=== PATIENT | female | born 1985 | race Caucasian/White ===

== ENCOUNTER 2020-06-29 16:27 | Outpatient (REF) | payer OTHER, SELFPAY | END 2020-06-29 16:28 | disposition home or self-care (01) | LOC: HO.LAB 16:27 | PROVIDERS: Visit Provider Internal Medicine | DX: Z20.828 Contact with and (suspected) exposure to other viral communicable diseases (principal) | CPT/HCPCS: 36415; C9803; U0003 ==

== ENCOUNTER 2021-07-28 12:02 | Emergency (ER) | payer OTHER, SELFPAY ==
[2021-07-28 12:20] VITALS: BP 110/77; PULSE 93; RESP 18; O2SAT 98; BMI 32.8
--- NOTE | 2021-07-28 13:13 | ED_ITS ---
HPI - Back Pain/Injury General Chief Complaint: Back Pain/Injury Stated Complaint: back pain Time Seen by Provider: 07/28/21 13:13 History of Present Illness HPI Narrative: Patient complains of right-sided low back pain which intermittently radiates to the right gluteal and upper thigh area for 2-3 weeks, it may be from having exercised in the gym but she is not sure, she also complains of bladder pressure with urination for several days, no fever no chills no pain with urination no vomiting no abdomen or back pain Related Data Previous Rx's Medication Instructions Recorded acetaminophen 500 mg tablet 1,000 mg PO QID PRN #30 tab 07/28/21 cyclobenzaprine 5 mg tablet 5 mg PO TID PRN #14 tab 07/28/21 ibuprofen 600 mg tablet 600 mg PO Q6H PRN #20 tab 07/28/21 lidocaine 5 % topical patch 1 patch TOPICAL DAILY PRN #15 ea 07/28/21 prednisone 20 mg tablet 60 mg PO DAILY 4 Days #12 tab 07/28/21 Allergies Allergy/AdvReac Type Severity Reaction Status Date / Time No Known Allergies Allergy Unverified 03/10/20 19:28 [No Known Allergies*] Review of Systems Verdana 4l Review of Systems: Verdana 4d Verdana 4d Positive for back pain and a feeling of pressure when she urinates Negatives are no fever no chills no dizziness no weakness no fainting no feeling faint no headache no neck pain no chest pain or shortness of breath no abdominal pain no nauseanausea vomiting or diarrhea no burning with urination no frequency of urination no incontinence no changes to bowel or bladder no numbness or weakness Yes all other systems are reviewed and are negative PMFSH Past Medical History Source: nursing notes reviewed Medical History (Updated 07/28/21 @ 14:03 by MAIK Oliva) No known health problems Surgical History (Updated 07/28/21 @ 12:24 by Mary Cesar) History of ankle surgery Tubal ligation status Social History Social History Advance Directives: No Advance Directives Information Provided: No Patient : No Physical Exam Verdana 4l Vital Signs: Verdana 4d Verdana 4d Vital Signs: Verdana 4d Verdana 4Bd Last Vital Signs Verdana 4d Director [employer] New 4d Director [employer] [facility] Pulse 93 07/28/21 12:20 Director [employer] [facility] [employer] [facility] Resp 18 07/28/21 12:[address] BP 110/77 07/28/21 12:20 Pulse Ox 98 07/28/21 12:20 BMI result Body Mass Index 32.8 General appearance is comfortable appearing no acute distress Head is normocephalic atraumatic Neck is supple Respiratory no distress Abdomen is soft and nontender no rebound no guarding The back had right lower lumbar soft tissue tenderness, no CVA tenderness, no midline or bony tenderness, skin was normal, pain is easily reproduced in the right lower back with bending and movement Extremities full range of motion x4 Neuro gait and balance are normal, motor is 5/5 x4 and sensation is intact and symmetrical Course Course Course Narrative: UA was checked and negative as well as was negative Patient symptoms of a mild feeling of pressure when urinating but no frequency no real pain with urination no change in color no antibiotics were provided For musculoskeletal back pain the patient is treated with analgesic steroids and a muscle relaxer and will follow with her doctor MDM - Back Pain/Injury Lab Data Attestation: I reviewed the patient's lab results. Labs: Lab Results 07/28/21 07/28/21 Range/Units 13:15 13:15 Urine Color YELLOW Urine Appearance CLEAR Urine pH 7.0 (5.0-8.0) Ur Specific Williams 1.020 (1.005-1.025) Urine Protein NEG (NEG-TRACE) MG/DL Urine Glucose (UA) NEG (NEG) MG/DL Urine Ketones NEG (NEG) MG/DL Urine Blood NEG (NEG) Urine Nitrite NEG (NEG) Ur Leukocyte Esterase NEG (NEG) Urine Test NEGATIVE (NEGATIVE) Discharge Plan Discharge Clinical Impression: Back pain Patient Disposition: Home, Self-Care Additional Instructions: Urine testing did not show any sign of urinary tract infection Back pain usually resolves on its own but if it is not going away follow with primary doctor cause physical therapy, massage chiropractor are often helpful and he can give your referrals We are trying prednisone which often resists relieves inflammation around the nerve and may be helpful Return any time any worse condition or any concerns Prescriptions: New acetaminophen 500 mg tablet 1,000 mg PO QID PRN (Reason: pain) Qty: 30 0RF lidocaine 5 % adhesive patch,medicated 1 patch topical DAILY PRN (Reason: Back pain) Qty: 15 0RF Rx Instructions: leave on most painful area for up to 12 hrs cyclobenzaprine 5 mg tablet 5 mg PO TID PRN (Reason: muscle spasm) Qty: 14 0RF Rx Instructions: This medication may cause drowsiness so no driving for 6 hours after taking ibuprofen 600 mg tablet 600 mg PO Q6H PRN (Reason: pain) Qty: 20 0RF prednisone 20 mg tablet 60 mg PO DAILY 4 Days Qty: 12 0RF Interventions: ED Discharge Assessment Last Done: 07/28/21 14:05 Discharge Date/Time: 07/28/21 14:06
[2021-07-28 13:44] LABS: Appearance Urine CLEAR; Color Urine YELLOW; Glucose Urine UA NEG (NEG); Leukocyte Esterase Urine NEG (NEG); Nitrite Urine NEG (NEG); Urine Blood NEG (NEG); Urine Ketones NEG (NEG); Urine Protein NEG (NEG-TRACE)
[2021-07-28 13:45] LABS: UPreg QC Valid YES; Urine Pregnancy NEGATIVE (NEGATIVE)
== END 2021-07-28 14:06 | disposition home or self-care (01) ==
PROVIDERS: Physician Assistant Medical; Emergency Provider Emergency Medicine
DX: M54.50 Low back pain, unspecified (principal)
CPT/HCPCS: 81003; 81025; 99283

== ENCOUNTER 2021-08-03 18:52 | Emergency (ER) | payer OTHER, SELFPAY ==
--- NOTE | ~2021-08-03 | XR_ITS ---
EXAMINATION: XR CHEST CLINICAL INFORMATION: Cervical lymphadenopathy COMPARISON: None TECHNIQUE: Frontal view of the chest was obtained. FINDINGS: Lung volumes are symmetric. No focal consolidation is seen. No evidence of pneumothorax, pleural effusion, or pulmonary edema. The cardiomediastinal contour is unremarkable. No acute osseous findings are seen. XR/XR chest 1V IMPRESSION: No acute cardiopulmonary findings.
[2021-08-03 20:07] VITALS: BP 112/71; PULSE 82; RESP 16; TEMP 36.4; O2SAT 100; BMI 32.6
--- NOTE | 2021-08-03 23:59 | ED_ITS ---
HPI - URI/Sore Throat General Chief Complaint: Upper Respiratory Symptoms Stated Complaint: ? swollen neck glands Time Seen by Provider: 08/03/21 23:43 Source: patient Mode of arrival: ambulatory Limitations: no limitations History of Present Illness HPI Narrative: 36-year-old female came in for evaluation of sore throat and the large neck lymph node. Patient has been feeling enlarged lymph node gland on the right side of the neck radiating to the right ear, complaining of sore throat,patient decline fever or chills, no difficulty swallowing or difficulty breathing. Patient tested positive for COVID 3 weeks ago. Patient otherwise decline chest pain, abdominal pain, vomiting or diarrhea. Related Data Previous Rx's Medication Instructions Recorded acetaminophen 500 mg tablet 1,000 mg PO QID PRN #30 tab 07/28/21 cyclobenzaprine 5 mg tablet 5 mg PO TID PRN #14 tab 07/28/21 ibuprofen 600 mg tablet 600 mg PO Q6H PRN #20 tab 07/28/21 lidocaine 5 % topical patch 1 patch TOPICAL DAILY PRN #15 ea 07/28/21 prednisone 20 mg tablet 60 mg PO DAILY 4 Days #12 tab 07/28/21 Allergies Allergy/AdvReac Type Severity Reaction Status Date / Time No Known Allergies Allergy Verified 08/03/21 20:07 [No Known Allergies*] Review of Systems Review of Systems: All other systems are reviewed and are negative Constitutional: Reports as per HPI and Reports no additional constitutional complaints Eyes: Reports as per HPI and Reports no additional eye complaints Reports system reviewed and no additional complaints, except as documented Cardiovascular: Reports as per HPI and Reports no additional cardiovascular co mplaints Respiratory: Reports as per HPI and Reports no additional respiratory complaints Gastrointestinal: Reports as per HPI and Reports no additional gastrointestinal complaints Genitourinary: Reports no additional female genitourinary complaints Musculoskeletal: Reports no additional musculoskeletal complaints Skin/Breast: Reports system reviewed and no additional complaints, except as docu Psychiatric: Reports no additional psychiatric complaints Endocrine: Reports no additional endocrine complaints Hematologic/Lymphatic: Reports no additional hematologic/lymphatic complaints Allergic/Immunologic: Reports no additional allergic/immunologic complaints Reports system reviewed and no additional complaints, except as documented and Reports Abnormal speech present PMFSH Past Medical History Medical History No known health problems Surgical History History of ankle surgery Tubal ligation status Social History Social History Advance Directives: No Advance Directives Information Provided: No Patient : No Physical Exam Vital Signs: Vital Signs: Last Vital Signs Temp 97.6 F 08/03/21 20:07 Pulse 82 08/03/21 20:07 Resp 16 08/03/21 20:07 BP 112/71 08/03/21 20:07 Pulse Ox 100 08/03/21 20:07 BMI result Body Mass Index 32.6 vital signs have been reviewed as appeared to be correct. Blood pressure normal. Heart rate normal. Respiration rate normal. Temperature normal. Oxygen saturation normal. Appearance: Alert. Oriented X3. No acute distress. Head: Normal external exam. Normocephalic. Atraumatic. No Harrison signs noted. No raccoon eyes noted Eyes: PERRLA. EOMI. Conjunctiva and sclera normal. Eyelids normal. ENT: TM's Normal. Pharynx normal. Uvula midline. Patent airway, no stridor. Moist mucous membranes. No trismus noted. No drooling noted. No muffled voice noted. Neck: Normal inspection. Neck supple. FROM. No adenopathy. Thyroid Normal. No meningeal signs. No neck mass noted. CVS: Normal heart rate and rhythm. Heart sound normal. No murmurs noted. Pulses normal throughout. Respiratory: No respiratory distress. Painless inspiration. Breath sounds normal. No wheezes/rales/rhonchi noted. Chest nontender. No accessory muscle usage noted or decreased air movement noted. Abdomen: Soft and nontender. Bowel sounds normal in all 4 quadrants. No distention noted. No organomegaly noted. No visible injury noted. Back: No CVA tenderness. Full range of motion noted. Skin: Skin warm and dry. Normal skin color. Normal skin turgor. No rashes/lesions/lacerations noted. Extremities: No lower extremity edema. Extremities exhibit normal range of motion. Extremities nontender. Neuro: Oriented X 3. Cranial nerve exam: II-XII are grossly intact No motor deficit. No sensory deficit. Reflexes normal. Course Course Course Narrative: 36-year-old female came in for subjective feeling of right-sided lymphadenopathy. Physical exam revealed patent airway, on palpable masses in her neck exam. Normal chest x-ray, patient had viral respiratory panel is still positive for COVID-19 infection, patient was stable vital signs. As discussed with the patient if symptoms persist to follow-up with her primary doctor to consider outpatient neck ultrasound. MDM - URI/Sore Throat Lab Data Attestation: I reviewed the patient's lab results. Labs: Lab Results 08/04/21 08/04/21 Range/Units 00:23 00:23 Influenza Type A (PCR) NEGATIVE (Negative) Influenza Type B (PCR) NEGATIVE (Negative) RSV RNA Qual (PCR) NEGATIVE (Negative) SARS-CoV-2 RNA (RT-PCR) POSITIVE A (Negative) S. pyogenes GrpA OLLIE Negative (Negative) Imaging Data Chest x-ray: Attestation: I personally reviewed and interpreted this imaging study as follows: Radiologist's impression: no acute cardiopulmonary findings. Discharge Plan Discharge Clinical Impression: Upper respiratory infection, COVID-19 virus infection Patient Disposition: Home, Self-Care Instructions: Lymphadenopathy (ED) Additional Instructions: if symptoms persist for 3-4 days, or losing unexplainable weight call your primary doctor to arrange for an outpatient neck ultrasound. Prescriptions: No Action acetaminophen 500 mg tablet 1,000 mg PO QID PRN (Reason: pain) Qty: 30 0RF lidocaine 5 % adhesive patch,medicated 1 patch topical DAILY PRN (Reason: Back pain) Qty: 15 0RF Rx Instructions: leave on most painful area for up to 12 hrs cyclobenzaprine 5 mg tablet 5 mg PO TID PRN (Reason: muscle spasm) Qty: 14 0RF Rx Instructions: This medication may cause drowsiness so no driving for 6 hours after taking ibuprofen 600 mg tablet 600 mg PO Q6H PRN (Reason: pain) Qty: 20 0RF prednisone 20 mg tablet 60 mg PO DAILY 4 Days Qty: 12 0RF Referrals: Physician,Unknown J [Primary Care Provider] - 2 days
[2021-08-04 00:39] LABS: Strep A Nucleic Acid Negative (Negative)
[2021-08-04 01:09] LABS: Influenza A PCR NEGATIVE (Negative); Influenza B PCR NEGATIVE (Negative); Resp Syncy Virus RNA Qual PCR NEGATIVE (Negative); SARS COV2 PCR INHOUSE POSITIVE (Negative)
== END 2021-08-04 01:53 | disposition home or self-care (01) ==
PROVIDERS: Emergency Provider Emergency Medicine
DX: U07.1 COVID-19 (principal); R59.9 Enlarged lymph nodes, unspecified; H92.01 Otalgia, right ear; Z79.899 Other long term (current) drug therapy
CPT/HCPCS: 0241U; 71045; 87651; 99283

== ENCOUNTER 2022-10-01 11:55 | Emergency (ER) | payer OTHER, SELFPAY ==
[2022-10-01 12:28] VITALS: BP 125/71; PULSE 80; RESP 16; TEMP 36.7; O2SAT 100; BMI 28.7
--- NOTE | 2022-10-01 12:30 | ECG_ITS ---
Test Reason : ches tightness Blood Pressure : / mmHG Vent. Rate : 072 BPM Atrial Rate : 072 BPM P-R Int : 130 ms QRS Dur : 078 ms QT Int : 370 ms P-R-T Axes : 052 026 044 degrees QTc Int : 405 ms Normal sinus rhythm Normal ECG When compared with ECG of 23-APR-2019 01:01, No significant change was found Referred By: Zaid Gibson Electronically Signed By:MINI EWING MD
--- NOTE | 2022-10-01 12:31 | ED_ITS ---
HPI - General Adult General Chief complaint: Headache <MAIK Salinas - Last Filed: 10/01/22 17:09> Stated complaint: headache 3 days <MAIK Salinas - Last Filed: 10/01/22 17:09> Time Seen by Provider: 10/01/22 15:44 <MAIK Salinas - Last Filed: 10/01/22 17:09> Source: patient <MAIK Sagastume Last Filed: 10/01/22 17:04> Mode of arrival: ambulatory <MAIK Sagastume Last Filed: 10/01/22 17:04> Limitations: no limitations <MAIK Sagastume Last Filed: 10/01/22 17:04> History of Present Illness HPI narrative: Patient is a 37 year old assigned female at with a history of migraines presenting to the emergency department today with a headache. Patient states that over the last 3 days she has had a persistent headache. Patient states that she is diagnosed with migraines but does not follow anyone or have any medications prescribed for them. Patient denies any dizziness, lightheadedness, abdominal pain, nausea, vomiting, fever, chills, blurry vision, double vision, loss of vision, chest pain, difficulty breathing, shortness of breath, back pain, night sweats, pain with urination, increased urinary frequency, increased urinary urgency, blood in her urine or stool, syncope or a near syncopal episode, recent trauma or falls, bowel incontinence, bladder incontinence, bowel retention, bladder retention, or any other complaints at this time. <MAIK Sagastume - Last Filed: 10/01/22 17:04> Onset (ago): day(s) (3) <MAIK Sagastume - Last Filed: 10/01/22 17:04> Location: head <MAIK Sagastume Last Filed: 10/01/22 17:04> Radiation: non-radiation <MAIK Sagastume Last Filed: 10/01/22 17:04> Severity: mild <MAIK Sagastume Last Filed: 10/01/22 17:04> Severity scale (1-10): 3 <MAIK Sagastume Last Filed: 10/01/22 17:04> Quality: aching and dull <MAIK Sagastume Last Filed: 10/01/22 17:04> Pain Consistency: constant <MAIK Sagastume Last Filed: 10/01/22 17:04> Relieving factors: none <MAIK Sagastume Last Filed: 10/01/22 17:04> Exacerbating factors: none <MAIK Sagastume Last Filed: 10/01/22 17:04> Associated symptoms: denies other symptoms <MAIK Sagastume - Last Filed: 10/01/22 17:04> Treatments prior to arrival: none <MAIK Sagastume Last Filed: 10/01/22 17:04> Related Data Home medications: Previous Rx's Medication Instructions Recorded acetaminophen 500 mg tablet 1,000 mg PO QID PRN pain #30 tabs 07/28/21 cyclobenzaprine 5 mg tablet 5 mg PO TID PRN muscle spasm #14 07/28/21 tabs ibuprofen 600 mg tablet 600 mg PO Q6H PRN pain #20 tabs 07/28/21 lidocaine 5 % topical patch 1 patch topical DAILY PRN Back 07/28/21 pain #15 ea prednisone 20 mg tablet 60 mg PO DAILY 4 days #12 tabs 07/28/21 <MAIK Salinas - Last Filed: 10/01/22 17:09> Allergies/adverse reactions: Allergies Allergy/AdvReac Type Severity Reaction Status Date / Time No Known Allergies Allergy Verified 08/03/21 20:07 [No Known Allergies*] <MAIK Salinas Last Filed: 10/01/22 17:09> Review of Systems Constitutional: Constitutional: Reports no additional constitutional complaints, Denies chills, Denies fever(s), Reports headache(s) and Denies night sweats <MAIK Sagastume - Last Filed: 10/01/22 17:04> Eyes: Eyes: Reports no additional eye complaints, Denies blurry vision, Denies change in vision, Denies diplopia, Denies eye discharge, Denies loss of vision and Denies eye pain <MAIK Sagastume Last Filed: 10/01/22 17:04> ENT: Denies dizziness and Reports headache(s) <MAIK Sagastume - Last Filed: 10/01/22 17:04> Cardiovascular: Cardiovascular: Reports no additional cardiovascular complaints, Denies chest pain, Denies lightheadedness, Denies Loss of Consciousness and Denies dyspnea <MAIK Sagastume - Last Filed: 10/01/22 17:04> Respiratory: Respiratory: Reports no additional respiratory complaints and Denies dyspnea <MAIK Sagastume Last Filed: 10/01/22 17:04> Gastrointestinal: Gastrointestinal: Reports no additional gastrointestinal complaints, Denies abdominal pain, Denies melena, Denies hematochezia, Denies change in bowel habits and Denies change in stool character <MAIK Sagastume - Last Filed: 10/01/22 17:04> Genitourinary: Genitourinary: Denies hematuria, Denies urinary frequency, Denies dysuria, Denies urinary incontinence, Denies urinary hesitancy and Denies urinary urgency <MAIK Sagastume Last Filed: 10/01/22 17:04> Musculoskeletal: Musculoskeletal: Reports no additional musculoskeletal complaints, Denies numbness and Denies tingling <MAIK Sagastume Last Filed: 10/01/22 17:04> Neurologic: Denies dizziness, Reports headache(s), Denies loss of vision, Denies numbness and Denies tingling <MAIK Sagastume Last Filed: 10/01/22 17:04> Psychiatric: Psychiatric: Reports no additional psychiatric complaints <MAIK Sagastume Last Filed: 10/01/22 17:04> Endocrine: Endocrine: Reports no additional endocrine complaints <MAIK Sagastume Last Filed: 10/01/22 17:04> Hematologic/Lymphatic: Hematologic/Lymphatic: Reports no additional hematologic/lymphatic complaints <MAIK Sagastume Last Filed: 10/01/22 17:04> Allergic/Immunologic: Allergic/Immunologic: Reports no additional allergic/immunologic complaints <MAIK Sagastume Last Filed: 10/01/22 17:04> PMFSH Past Medical History Attestation statement: The following information was validated with the patient. <MAIK Sagastume Last Filed: 10/01/22 17:04> Source: old records reviewed and nursing notes reviewed <MAIK Sagastume - Last Filed: 10/01/22 17:04> Medical History: Medical History No known health problems <MAIK Salinas - Last Filed: 10/01/22 17:09> Surgical History: Surgical History History of ankle surgery Tubal ligation status <MAIK Salinas - Last Filed: 10/01/22 17:09> Social History Social History: Social History Advance Directives: No Advance Directives Information Provided: No <MAIK Salinas - Last Filed: 10/01/22 17:09> Physical Exam ED Vital Signs: Vital Signs - 24 hr 10/01/22 12:28 Temperature 98.1 F Pulse Rate 80 Respiratory Rate 16 Blood Pressure 125/71 Pulse Oximetry 100 Oxygen Delivery Method Room Air BMI result Body Mass Index 28.7 <MAIK Salinas - Last Filed: 10/01/22 17:09> Vital Signs - 24 hr 10/01/22 12:28 Temperature 98.1 F Pulse Rate 80 Respiratory Rate 16 Blood Pressure 125/71 Pulse Oximetry 100 Oxygen Delivery Method Room Air BMI result Body Mass Index 28.7 <MAIK Sagastume - Last Filed: 10/01/22 17:04> Const General: cooperative, no acute distress, alert and awake <MAIK Sagastume - Last Filed: 10/01/22 17:04> Nutritional Appearance: well nourished <MAIK Sagastume - Last Filed: 10/01/22 17:04> Orientation/consciousness: patient oriented x3 <MAIK Sagastume - Last Filed: 10/01/22 17:04> Limitations: no limitations <MAIK Sagastume Last Filed: 10/01/22 17:04> HENMT Head: Yes normal to inspection and Yes atraumatic <MAIK Sagastume Last Filed: 10/01/22 17:04> Ears: hearing grossly normal bilaterally and external ears normal <MAIK Sagastume Last Filed: 10/01/22 17:04> General nose exam: Normal external nose present, no nasal discharge noted and no epistaxis <Zoila Sincere RI - Last Filed: 10/01/22 17:04> Face and sinus: Yes normal facial exam, No abrasion and No laceration <Zoila Sincere RI - Last Filed: 10/01/22 17:04> Mouth: Normal oral and palatal mucosa present, no drooling and no muffled voice <Zoila Post RI - Last Filed: 10/01/22 17:04> Eyes General: appearance normal, both eyes and all related structures <Zoila Post RI - Last Filed: 10/01/22 17:04> Periorbital: periorbital findings normal <Zoila Post RI - Last Filed: 10/01/22 17:04> Eyelids: Yes eyelids normal <Zoila Post RI - Last Filed: 10/01/22 17:04> Conjunctivae: conjunctivae normal <Zoila Post RI - Last Filed: 10/01/22 17:04> Pupils: Equal, round and reactive pupils present <Zoila Pots RI - Last Filed: 10/01/22 17:04> EOM: EOMs intact bilaterally <Zoila Post RI - Last Filed: 10/01/22 17:04> Neck Neck: Yes normal visual inspection, Yes full ROM and Yes no lymphadenopathy <Zoila Post RI - Last Filed: 10/01/22 17:04> Chest Chest palpation & inspection: normal inspection of the chest <Zoila Post RI - Last Filed: 0 10/01/22 17:04> Resp Effort & Inspection: normal respiratory effort and able to speak in complete sentences <Zoila Post RI - Last Filed: 10/01/22 17:04> Auscultation: clear to auscultation bilaterally <MAIK Sagastume - Last Filed: 10/01/22 17:04> Cardio Rate: regular rate <Zoila Post RI - Last Filed: 10/01/22 17:04> Rhythm: regular rhythm <Zoila Post RI - Last Filed: 10/01/22 17:04> GI Inspection: Yes normal to inspection <Zoila Post RI - Last Filed: 10/01/22 17:04> Neuro General: patient oriented x3 and moves all extremities <MAIK Sagastume - Last Filed: 10/01/22 17:04> Cranial nerves: Yes Equal, round and reactive pupils present <MAIK Sagastume - Last Filed: 10/01/22 17:04> Cognition (Neuro): normal cognition <MAIK Sagastume - Last Filed: 10/01/22 17:04> Motor exam (neuro): 5/5 motor strength present throughout <MAIK Sagastume - Last Filed: 10/01/22 17:04> Sensory Exam: Normal double simultaneous stimulation for sensation <MAIK Sagastume - Last Filed: 10/01/22 17:04> Coordination: [id number] test normal <MAIK Sagastume - Last Filed: 10/01/22 17:04> Extrem General: Yes normal to inspection, Yes full ROM and Yes capillary refill normal <MAIK Sagastume - Last Filed: 10/01/22 17:04> Psych Appearance: grossly normal <MAIK Sagastume - Last Filed: 10/01/22 17:04> Mental Status: mental status grossly normal <MAIK Sagastume - Last Filed: 10/01/22 17:04> Affect: normal affect <MAIK Sagastume - Last Filed: 10/01/22 17:04> Attitude: cooperative <MAIK Sagastume - Last Filed: 10/01/22 17:04> Thought process: Normal thought process present <MAIK Sagastume - Last Filed: 17:04> Thought content: Normal thought content present <MAIK Sagastume - Last Filed: 10/01/22 17:04> Insight: Good insight present (Psych) <MAIK Sagastume - Last Filed: 10/01/22 17:04> Course Course Course Narrative: RME: 37 yold female with pmh of migraines presents to the ED for chest tighenss, headache, and neck pain. labs, EKG, and SARS ordered. Patient vital stable. <MAIK Salinas - Last Filed: 10/01/22 17:09> Medications Administered Discontinued Medications Generic Name Dose Route Start Last Admin Trade Name Freq PRN Reason Stop Dose Admin Acetaminophen/Butalbital/Caffeine 1 tab 10/01/22 15:49 10/01/22 16:01 Butalb/Acetamin/Caff 50/325/40 Tablet PO 10/01/22 15:50 1 tab ONCE ONE Administration Ketorolac Tromethamine 15 mg 10/01/22 15:49 10/01/22 16:02 Ketorolac Tromethamine 15 Mg/Ml Vial IM 10/01/22 15:50 15 mg ONCE ONE Administration <MAIK Salinas - Last Filed: 10/01/22 17:09> Medications Administered Discontinued Medications Generic Name Dose Route Start Last Admin Trade Name Nae PRN Reason Stop Dose Admin Acetaminophen/Butalbital/Caffeine 1 tab 10/01/22 15:49 10/01/22 16:01 Butalb/Acetamin/Caff 50/325/40 Tablet PO 10/01/22 15:50 1 tab ONCE ONE Administration Ketorolac Tromethamine 15 mg 10/01/22 15:49 10/01/22 16:02 Ketorolac Tromethamine 15 Mg/Ml Vial IM 10/01/22 15:50 15 mg ONCE ONE Administration <MAIK Sagastume - Last Filed: 10/01/22 17:04> Medical Decision Making Medical Decision Making MDM Narrative: Patient is a 37 year old assigned female at with a history of migraines presenting to the emergency department today with a persistent headac he. Patient's physical exam was unremarkable. Patient's blood work was unremarkable. Patient's urine showed no acute process. I explained my physical exam findings as well as all test results to the patient. I answered all questions asked by the patient. Patient received IM toradol and PO Fiorcet which she stated helped her symptoms significantly. I stressed the importance of the patient taking her medication as prescribed. I stressed the importance of the patient following up with her primary care provider. I stressed the importance of the patient returning to the emergency department immediately if her symptoms were to worsen or if she were to develop any dizziness, shortness of breath, di fficulty breathing, chest pain, blurry vision, loss of vision, nausea, vomiting, abdominal pain, fever, chills, back pain, or any other complaints. Patient verbalized agreement and understanding with this treatment plan and discharge. <MAIK Sagastume - Last Filed: 10/01/22 17:04> Differential Diagnosis Differential Diagnoses: The differential diagnosis associated with the presentation includes <MAIK Sagastume - Last Filed: 10/01/22 17:04> migraine <MAIK Sagastume - Last Filed: 10/01/22 17:04> Lab Data MDM Lab Attestation statement: I reviewed the patient's lab results. <MAIK Sagastume - Last Filed: 10/01/22 17:04> Result Diagrams: 10/01/22 12:48 10/01/22 12:48 <MAIK Salinas - Last Filed: 10/01/22 17:09> Labs: Lab Results 10/01/22 10/01/22 10/01/22 Range/Units 12:45 12:48 12:48 WBC 5.1 (4.8-10.8) X10*3/uL RBC 4.37 (4.20-5.50) X10*6/uL Hgb 13.9 (12.0-16.0) g/dl Hct 40.4 (37.0-47.0) % MCV 92.4 (80.0-98.0) fL MCH 31.8 (27.0-33.0) pg MCHC 34.4 (31.0-35.0) g/dl RDW 12.4 (11.0-16.0) % Plt Count 213 (160-400) X10*3/uL MPV 9.7 (9.4-12.3) fL Immature Gran % (Auto) 0.2 (0.0-0.4) % Neut % (Auto) 59.5 (45-73) % Lymph % (Auto) 31.4 (20-40) % [place] % (Auto) 6.9 (2-11) % Eos % (Auto) 1.6 (0-4) % Baso % (Auto) 0.4 (0-2) % Lymph # (Auto) 1.6 (1.2-4.9) X10*3/uL [place] # (Auto) 0.4 (0.1-1.2) X10*3/uL Eos # (Auto) 0.1 (0.0-0.4) X10*3/uL Baso # (Auto) 0.0 (0.0-0.2) X10*3/uL Abs Immat Gran (auto) 0.01 (0.00-0.03) X10*3/uL Absolute Neuts (auto) 3.0 (2.0-8.3) x10*3/uL Absolute Nucleated RBC 0.000 (0.0-0.012) X10*3/uL Nucleated RBC % (auto) 0.0 (0.0-0.2) /100WBC PT 10.4 (10.0-13.1) SEC INR 0.9 (0.9-1.1) APTT 28.3 (26.0-36.4) SEC Sodium (135-145) mmol/L Potassium (3.3-5.1) mmol/L Chloride (96-108) mmol/L Carbon Dioxide (22-29) mmol/L Anion Gap (12-20) BUN (9-16) mg/dL Creatinine (0.5-1.4) mg/dL Estim Creat Clear Calc Estimated GFR Random Glucose (60-115) mg/dL Calcium (8.4-10.2) mg/dL Total Bilirubin (0.0-1.0) mg/dL AST (5-31) U/L ALT (0-31) U/L Alkaline Phosphatase (39-117) U/L Troponin I High Sens (<3.5-17.0) ng/L Total Protein (6.5-8.0) g/dL Albumin (3.5-5.0) g/dL Influenza Type A (PCR) NEGATIVE (Negative) Influenza Type B (PCR) NEGATIVE (Negative) RSV RNA Qual (PCR) NEGATIVE (Negative) SARS-CoV-2 RNA (RT-PCR) NEGATIVE (Negative) 10/01/22 10/01/22 Range/Units 12:48 12:48 WBC (4.8-10.8) X10*3/uL RBC (4.20-5.50) X10*6/uL Hgb (12.0-16.0) g/dl Hct (37.0-47.0) % MCV (80.0-98.0) fL MCH (27.0-33.0) pg MCHC (31.0-35.0) g/dl RDW (11.0-16.0) % Plt Count (160-400) X10*3/uL MPV (9.4-12.3) fL Immature Gran % (Auto) (0.0-0.4) % Neut % (Auto) (45-73) % Lymph % (Auto) (20-40) % [place] % (Auto) (2-11) % Eos % (Auto) (0-4) % Baso % (Auto) (0-2) % Lymph # (Auto) (1.2-4.9) X10*3/uL [place] # (Auto) (0.1-1.2) X10*3/uL Eos # (Auto) (0.0-0.4) X10*3/uL Baso # (Auto) (0.0-0.2) X10*3/uL Abs Immat Gran (auto) (0.00-0.03) X10*3/uL Absolute Neuts (auto) (2.0-8.3) x10*3/uL Absolute Nucleated RBC (0.0-0.012) X10*3/uL Nucleated RBC % (auto) (0.0-0.2) /100WBC PT (10.0-13.1) SEC INR (0.9-1.1) APTT (26.0-36.4) SEC Sodium 142 (135-145) mmol/L Potassium 4.4 (3.3-5.1) mmol/L Chloride 105 (96-108) mmol/L Carbon Dioxide 28 (22-29) mmol/L Anion Gap 13 (12-20) BUN 12 (9-16) mg/dL Creatinine 0.86 (0.5-1.4) mg/dL Estim Creat Clear Calc 87.6 Estimated GFR > 60 Random Glucose 83 (60-115) mg/dL Calcium 9.5 (8.4-10.2) mg/dL Total Bilirubin 0.5 (0.0-1.0) mg/dL AST 16 (5-31) U/L ALT 17 (0-31) U/L Alkaline Phosphatase 78 (39-117) U/L Troponin I High Sens < 2.7 (<3.5-17.0) ng/L Total Protein 6.6 (6.5-8.0) g/dL Albumin 4.0 (3.5-5.0) g/dL Influenza Type A (PCR) (Negative) Influenza Type B (PCR) (Negative) RSV RNA Qual (PCR) (Negative) SARS-CoV-2 RNA (RT-PCR) (Negative) <MAIK Salinas - Last Filed: 10/01/22 17:09> Lab Results 10/01/22 10/01/22 10/01/22 Range/Units 12:45 12:48 12:48 WBC 5.1 (4.8-10.8) X10*3/uL RBC 4.37 (4.20-5.50) X10*6/uL Hgb 13.9 (12.0-16.0) g/dl Hct 40.4 (37.0-47.0) % MCV 92.4 (80.0-98.0) fL MCH 31.8 (27.0-33.0) pg MCHC 34.4 (31.0-35.0) g/dl RDW 12.4 (11.0-16.0) % Plt Count 213 (160-400) X10*3/uL MPV 9.7 (9.4-12.3) fL Immature Gran % (Auto) 0.2 (0.0-0.4) % Neut % (Auto) 59.5 (45-73) % Lymph % (Auto) 31.4 (20-40) % [place] % (Auto) 6.9 (2-11) % Eos % (Auto) 1.6 (0-4) % Baso % (Auto) 0.4 (0-2) % Lymph # (Auto) 1.6 (1.2-4.9) X10*3/uL [place] # (Auto) 0.4 (0.1-1.2) X10*3/uL Eos # (Auto) 0.1 (0.0-0.4) X10*3/uL Baso # (Auto) 0.0 (0.0-0.2) X10*3/uL Abs Immat Gran (auto) 0.01 (0.00-0.03) X10*3/uL Absolute Neuts (auto) 3.0 (2.0-8.3) x10*3/uL Absolute Nucleated RBC 0.000 (0.0-0.012) X10*3/uL Nucleated RBC % (auto) 0.0 (0.0-0.2) /100WBC PT 10.4 (10.0-13.1) SEC INR 0.9 (0.9-1.1) APTT 28.3 (26.0-36.4) SEC Sodium (135-145) mmol/L Potassium (3.3-5.1) mmol/L Chloride (96-108) mmol/L Carbon Dioxide (22-29) mmol/L Anion Gap (12-20) BUN (9-16) mg/dL Creatinine (0.5-1.4) mg/dL Estim Creat Clear Calc Estimated GFR Random Glucose (60-115) mg/dL Calcium (8.4-10.2) mg/dL Total Bilirubin (0.0-1.0) mg/dL AST (5-31) U/L ALT (0-31) U/L Alkaline Phosphatase (39-117) U/L Troponin I High Sens (<3.5-17.0) ng/L Total Protein (6.5-8.0) g/dL Albumin (3.5-5.0) g/dL Influenza Type A (PCR) NEGATIVE (Negative) Influenza Type B (PCR) NEGATIVE (Negative) RSV RNA Qual (PCR) NEGATIVE (Negative) SARS-CoV-2 RNA (RT-PCR) NEGATIVE (Negative) 10/01/22 10/01/22 Range/Units 12:48 12:48 WBC (4.8-10.8) X10*3/uL RBC (4.20-5.50) X10*6/uL Hgb (12.0-16.0) g/dl Hct (37.0-47.0) % MCV (80.0-98.0) fL MCH (27.0-33.0) pg MCHC (31.0-35.0) g/dl RDW (11.0-16.0) % Plt Count (160-400) X10*3/uL MPV (9.4-12.3) fL Immature Gran % (Auto) (0.0-0.4) % Neut % (Auto) (45-73) % Lymph % (Auto) (20-40) % [place] % (Auto) (2-11) % Eos % (Auto) (0-4) % Baso % (Auto) (0-2) % Lymph # (Auto) (1.2-4.9) X10*3/uL [place] # (Auto) (0.1-1.2) X10*3/uL Eos # (Auto) (0.0-0.4) X10*3/uL Baso # (Auto) (0.0-0.2) X10*3/uL Abs Immat Gran (auto) (0.00-0.03) X10*3/uL Absolute Neuts (auto) (2.0-8.3) x10*3/uL Absolute Nucleated RBC (0.0-0.012) X10*3/uL Nucleated RBC % (auto) (0.0-0.2) /100WBC PT (10.0-13.1) SEC INR (0.9-1.1) APTT (26.0-36.4) SEC Sodium 142 (135-145) mmol/L Potassium 4.4 (3.3-5.1) mmol/L Chloride 105 (96-108) mmol/L Carbon Dioxide 28 (22-29) mmol/L Anion Gap 13 (12-20) BUN 12 (9-16) mg/dL Creatinine 0.86 (0.5-1.4) mg/dL Estim Creat Clear Calc 87.6 Estimated GFR > 60 Random Glucose 83 (60-115) mg/dL Calcium 9.5 (8.4-10.2) mg/dL Total Bilirubin 0.5 (0.0-1.0) mg/dL AST 16 (5-31) U/L ALT 17 (0-31) U/L Alkaline Phosphatase 78 (39-117) U/L Troponin I High Sens < 2.7 (<3.5-17.0) ng/L Total Protein 6.6 (6.5-8.0) g/dL Albumin 4.0 (3.5-5.0) g/dL Influenza Type A (PCR) (Negative) Influenza Type B (PCR) (Negative) RSV RNA Qual (PCR) (Negative) SARS-CoV-2 RNA (RT-PCR) (Negative) <MAIK Sagastume - Last Filed: 10/01/22 17:04> Discharge Plan Discharge Clinical Impression: Migraine <MAIK Salinas Last Filed: 10/01/22 17:09> Patient Disposition: Home, Self-Care <MAIK Salinas Last Filed: 10/01/22 17:09> Instructions: Migraine Headache (ED) <MAIK Salinas Last Filed: 10/01/22 17:09> Additional Instructions: Follow up with your primary care provider. Return to the emergency department immediately if your symptoms worsen or if you develop any dizziness, shortness of breath, difficulty breathing, chest pain, blurry vision, loss of vision, nausea, vomiting, abdominal pain, fever, chills, back pain, or any other complaints. <MAIK Salinas Last Filed: 10/01/22 17:09> Prescriptions: No Action acetaminophen 500 mg tablet 1,000 mg PO QID PRN (Reason: pain) Qty: 30 0RF lidocaine 5 % adhesive patch,medicated 1 patch topical DAILY PRN (Reason: Back pain) Qty: 15 0RF Rx Instructions: leave on most painful area for up to 12 hrs cyclobenzaprine 5 mg tablet 5 mg PO TID PRN (Reason: muscle spasm) Qty: 14 0RF Rx Instructions: This medication may cause drowsiness so no driving for 6 hours after taking ibuprofen 600 mg tablet 600 mg PO Q6H PRN (Reason: pain) Qty: 20 0RF prednisone 20 mg tablet 60 mg PO DAILY 4 Days Qty: 12 0RF <MAIK Salinas Last Filed: 10/01/22 17:09> Ref[place]: [facility] [place] (Call to establish and follow up with a primary care provider. If you already have a primary care provider, please follow up with them.) [facility] [facility]] (Call to establish and follow up with a primary care provider. If you already have a primary care provider, please follow up with them.) [facility] Group] (Call to establish and follow up with a primary care provider. If you already have a primary care provider, please follow up with them.) [facility] [place] (Call to establish and follow up with a neurologist for chronic migraine management. ) <MAIK Salinas - Last Filed: 10/01/22 17:09> Stand Alone Forms: Work/School Release <MAIK Salinas - Last Filed: 10/01/22 17:09> Interventions: ED Discharge Assessment Last Done: 10/01/22 16:06 <MAIK Salinas - Last Filed: 10/01/22 17:09> Discharge Date/Time: 10/01/22 16:06 <MAIK Salinas - Last Filed: 10/01/22 17:09> Print Language: Kiswahili <MAIK Salinas - Last Filed: 10/01/22 17:09>
[2022-10-01 12:59] LABS: MANUAL DIFF FLAG NO
[2022-10-01 13:02] LABS: Basophils Percent Auto 0.4 % (0-2); Eosinophils Absolute Auto 0.1 X10*3/uL (0.0-0.4); Eosinophils Percent Auto 1.6 % (0-4); Hematocrit 40.4 % (37.0-47.0); Hemoglobin 13.9 g/dl (12.0-16.0); Imm Gran Abs Auto 0.01 X10*3/uL (0.00-0.03); Imm Gran Pct Auto 0.2 % (0.0-0.4); Lymphocytes Absolute Auto 1.6 X10*3/uL (1.2-4.9); Lymphocytes Percent Auto 31.4 % (20-40); Mean Corpuscular HGB Conc 34.4 g/dl (31.0-35.0); Mean Corpuscular Hemoglobin 31.8 pg (27.0-33.0); Mean Corpuscular Volume 92.4 fL (80.0-98.0); Mean Platelet Volume 9.7 fL (9.4-12.3); Monocytes Absolute Auto 0.4 X10*3/uL (0.1-1.2); Monocytes Percent Auto 6.9 % (2-11); Neutrophils Percent Auto 59.5 % (45-73); Platelet Count 213 X10*3/uL (160-400); Red Blood Count 4.37 X10*6/uL (4.20-5.50); Red Cell Distribution Width 12.4 % (11.0-16.0); White Blood Count 5.1 X10*3/uL (4.8-10.8)
[2022-10-01 13:08] LABS: INTERNATIONAL NORM RATIO 0.9 (0.9-1.1); Prothrombin Time 10.4 SEC (10.0-13.1)
[2022-10-01 13:11] LABS: Partial Thromboplastin Time 28.3 SEC (26.0-36.4)
[2022-10-01 13:16] LABS: Alanine Aminotransferase 17 U/L (0-31); Alkaline Phosphatase 78 U/L (39-117); Anion Gap 13 (12-20); Aspartate Amino Transferase 16 U/L (5-31); Bilirubin Total 0.5 mg/dL (0.0-1.0); Blood Urea Nitrogen 12 mg/dL (9-16); Calcium 9.5 mg/dL (8.4-10.2); Carbon Dioxide 28 mmol/L (22-29); Chloride 105 mmol/L (96-108); Creatinine Clr Calc Pharmacy 87.6; Estimated Glomerular Filt Rate > 60; Glucose Random 83 mg/dL (60-115); Potassium 4.4 mmol/L (3.3-5.1); Sodium 142 mmol/L (135-145); Total Protein 6.6 g/dL (6.5-8.0)
[2022-10-01 13:31] LABS: Troponin-I High Sensitivity < 2.7 ng/L (<3.5-17.0)
[2022-10-01 13:45] LABS: Influenza A PCR NEGATIVE (Negative); Influenza B PCR NEGATIVE (Negative); Resp Syncy Virus RNA Qual PCR NEGATIVE (Negative); SARS COV2 PCR INHOUSE NEGATIVE (Negative)
[2022-10-01] MEDS: Butalb/Acetamin/Caff 50/325/40 TABLET 1 TAB PO (16:01)
[2022-10-01] MEDS: Ketorolac Tromethamine 15 MG/ML VIAL IM (16:02)
== END 2022-10-01 16:06 | disposition home or self-care (01) ==
LOC: HO.ED 15:58
PROVIDERS: Physician Assistant; Emergency Provider Emergency Medicine
DX: G43.909 Migraine, unspecified, not intractable, without status migrainosus (principal); R07.89 Other chest pain; Z20.822 Contact with and (suspected) exposure to COVID-19; Z20.828 Contact with and (suspected) exposure to other viral communicable diseases; Z79.899 Other long term (current) drug therapy
CPT/HCPCS: 0241U; 80053; 84484; 85025; 85610; 85730; 93005; 96372; 99283; 99284; J1885

== ENCOUNTER 2022-10-20 21:15 | Emergency (ER) | payer OTHER, SELFPAY ==
[2022-10-20 21:44] VITALS: BP 108/73; PULSE 82; RESP 16; TEMP 36.8; O2SAT 99; BMI 28.7
--- NOTE | 2022-10-20 22:35 | ED.GENADULT ---
HPI - General Adult General Chief complaint: Extremity Injury, Lower <NIKITA Mora - Last Filed: 06/26/23 21:52> Stated complaint: ingrown toe nail <Maria Isabel Wiley NIKITA - Last Filed: 06/26/23 21:52> Time Seen by Provider: 10/20/22 22:35 <Maria Isabel Wiley NIKITA - Last Filed: 06/26/23 21:52> Source: patient and RN notes reviewed <NIKITA Mora - Last Filed: 06/26/23 21:52> Mode of arrival: ambulatory <NIKITA Mora - Last Filed: 06/26/23 21:52> Limitations: no limitations <NIKITA Mora - Last Filed: 06/26/23 21:52> History of Present Illness HPI narrative: 37-year-old female with no significant medical history is here today for right foot 3rd toe pain. Patient reports that she cut her toenail few days ago and started having pain today. Patient thinks it is also because she was wearing shoes that were not so comfortable. Patient denies fever or chills. Denies any drainage, no swelling. <NIKITA Mora - Last Filed: 06/26/23 21:52> Onset (ago): day(s) <NIKITA Mora - Last Filed: 06/26/23 21:52> Related Data Home medications: Previous Rx's Medication Instructions Recorded acetaminophen 500 mg tablet 1,000 mg (2 x 500 mg) PO QID PRN 07/28/21 pain #30 tabs cyclobenzaprine 5 mg tablet 5 mg PO TID PRN muscle spasm #14 07/28/21 tabs ibuprofen 600 mg tablet 600 mg PO Q6H PRN pain #20 tabs 07/28/21 lidocaine 5 % topical patch 1 patch topical DAILY PRN Back 07/28/21 pain #15 ea prednisone 20 mg tablet 60 mg (3 x 20 mg) PO DAILY 4 days 07/28/21 #12 tabs bacitracin 500 unit/gram topical 1 appl topical Q8H #14 grams 10/20/22 ointment <Maria IsabelKAREN FinleyRAJAN - Last Filed: 06/26/23 21:52> Allergies/adverse reactions: Allergies Allergy/AdvReac Type Severity Reaction Status Date / Time No Known Allergies Allergy Verified 08/03/21 20:07 [No Known Allergies*] <Maria Isabel KAREN AldrichCooperBC - Last Filed: 06/26/23 21:52> Review of Systems Review of Systems: Yes all other systems are reviewed and are negative <Tej Augustin MD - Last Filed: 10/21/22 00:55> [facility] Past Medical History Medical History: Medical History No known health problems <DON MoraDONNELL - Last Filed: 06/26/23 21:52> Surgical History: Surgical History History of ankle surgery Tubal ligation status <DON MoraDONNELL - Last Filed: 06/26/23 21:52> Social History Social History: Social History Alcohol intake: never Smoked in Last 30 Days: No Use of substances other than those prescribed or required for medical reasons: No Advance Directives: No Advance Directives Information Provided: Yes <Maria IsabelKAREN FinleyRAJAN - Last Filed: 06/26/23 21:52> Physical Exam ED Vital Signs: Vital Signs - 24 hr 10/20/22 21:44 Temperature 98.2 F Pulse Rate 82 Respiratory Rate 16 Blood Pressure 108/73 Pulse Oximetry 99 Oxygen Delivery Method Room Air BMI result Body Mass Index 28.7 <NIKITA Mora - Last Filed: 06/26/23 21:52> Vital Signs - 24 hr 10/20/22 21:44 Temperature 98.2 F Pulse Rate 82 Respiratory Rate 16 Blood Pressure 108/73 Pulse Oximetry 99 Oxygen Delivery Method Room Air BMI result Body Mass Index 28.7 <Tej Augustin MD - Last Filed: 10/21/22 00:55> Course Course Course Narrative: 37-year-old female with no significant medical history is here today for right foot 3rd toe pain. Patient reports that she cut her toenail few days ago and started having pain today. Patient thinks it is also because she was wearing shoes that were not so comfortable. Patient denies fever or chills. Denies any drainage, no swelling. No signs of infection. Very small paronychia. Unable to drain. Patient will be discharged home with script for bacitracin. Patient will soak her foot in warm water and will return if her symptoms will get worse. <NIKITA Mora - Last Filed: 06/26/23 21:52> Medications Administered Discontinued Medications Generic Name Dose Route Start Last Admin Trade Name Freq PRN Reason Stop Dose Admin Bacitracin 1 appl 10/20/22 22:40 10/20/22 22:46 Bacitracin Oint 0.9 Gm Packet TOPICAL 10/20/22 22:41 1 appl ONCE ONE Administration Protocol <NIKITA Mora - Last Filed: 06/26/23 21:52> Medications Administered Discontinued Medications Generic Name Dose Route Start Last Admin Trade Name Freq PRN Reason Stop Dose Admin Bacitracin 1 appl 10/20/22 22:40 10/20/22 22:46 Bacitracin Oint 0.9 Gm Packet TOPICAL 10/20/22 22:41 1 appl ONCE ONE Administration Protocol <Tej Augustin MD - Last Filed: 10/21/22 00:55> Medical Decision Making Medical Decision Making MDM Narrative: Patient shoulder x-rays negative for fracture or dislocation 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 Please soak your foot in warm water. Apply bacitracin couple times a day. Keep your toes clean and dry. Make sure that you wear comfortable shoes and socks. Please return to emergency department if he will have worsening symptoms or any additional concerning symptoms. <NIKITA Mora - Last Filed: 06/26/23 21:52> Prescriptions: New bacitracin 500 unit/gram ointment 1 appl topical Q8H Qty: 14 0RF No Action acetaminophen 500 mg tablet 1,000 mg PO QID PRN (Reason: pain) Qty: 30 0RF lidocaine 5 % adhesive patch,medicated 1 patch topical DAILY PRN (Reason: Back pain) Qty: 15 0RF Rx Instructions: leave on most painful area for up to 12 hrs cyclobenzaprine 5 mg tablet 5 mg PO TID PRN (Reason: muscle spasm) Qty: 14 0RF Rx Instructions: This medication may cause drowsiness so no driving for 6 hours after taking ibuprofen 600 mg tablet 600 mg PO Q6H PRN (Reason: pain) Qty: 20 0RF prednisone 20 mg tablet 60 mg PO DAILY 4 Days Qty: 12 0RF <NIKITA Mora - Last Filed: 06/26/23 21:52> Stand Alone Forms: Work/School Release <NIKITA Mora - Last Filed: 06/26/23 21:52> Interventions: ED Discharge Assessment Last Done: 10/20/22 22:56 <NIKITA Mora - Last Filed: 06/26/23 21:52> Discharge Date/Time: 10/20/22 22:58 <NIKITA Mora - Last Filed: 06/26/23 21:52>
[2022-10-20] MEDS: Bacitracin Oint 0.9 GM PACKET 1 APPL TOPICAL (22:46)
== END 2022-10-20 22:58 | disposition home or self-care (01) ==
PROVIDERS: Emergency Provider Internal Medicine
DX: L03.031 Cellulitis of right toe (principal); L60.0 Ingrowing nail
CPT/HCPCS: 99283; 99284

== ENCOUNTER 2024-02-28 21:44 | Emergency (ER) | payer OTHER, SELFPAY ==
[2024-02-28 21:47] VITALS: BP 114/76; PULSE 94; RESP 18; TEMP 36.6; O2SAT 100; BMI 29.2
--- NOTE | 2024-02-28 22:04 | MHC.EDTECH ---
Patient brought into triage area,Covid/Flu/and strep swabs obtained and sent to lab.
[2024-02-28 22:18] LABS: IDNOW Serial# 08D9AD1C; Strep A Nucleic Acid Negative (Negative)
[2024-02-28 22:27] LABS: COVID-19 Test Negative (Negative); IDNOW Serial# 152EDE1D
[2024-02-28 22:28] LABS: IDNOW Serial# 9DB6401D; Influenza A Negative (Negative); Influenza B2 Negative (Negative)
--- NOTE | 2024-02-28 23:26 | ED.URI ---
HPI - URI/Sore Throat General Chief Complaint: Upper Respiratory Symptoms Stated Complaint: inflammation tonsils Time Seen by Provider: 02/28/24 22:39 Source: patient Mode of arrival: ambulatory Limitations: no limitations History of Present Illness ED Provider: lalita LESLIE Narrative: Patient complaining of sore throat with cervical lymphadenopathy for last 3 weeks no fever no chills also complaining of bilateral ear pain no other family member sick Related Data Previous Rx's ?Medication ?Instructions ?Recorded acetaminophen 500 mg tablet 1,000 mg (2 x 500 mg) PO QID PRN 07/28/21 pain #30 tabs cyclobenzaprine 5 mg tablet 5 mg PO TID PRN muscle spasm #14 07/28/21 tabs ibuprofen 600 mg tablet 600 mg PO Q6H PRN pain #20 tabs 07/28/21 lidocaine 5 % topical patch 1 patch topical DAILY PRN Back 07/28/21 pain #15 ea prednisone 20 mg tablet 60 mg (3 x 20 mg) PO DAILY 4 days 07/28/21 #12 tabs bacitracin 500 unit/gram topical 1 appl topical Q8H #14 grams 10/20/22 ointment amoxicillin 875 mg-potassium 1 tab PO BID #20 tabs 02/29/24 clavulanate 125 mg tablet Allergies Allergy/AdvReac Type Severity Reaction Status Date / Time No Known Allergies Allergy Verified 02/28/24 21:47 [No Known Allergies*] Review of Systems Review of Systems: Yes all other systems are reviewed and are negative PMFSH Past Medical History Medical History No known health problems Surgical History History of ankle surgery Tubal ligation status Social History Social History Alcohol intake: never Smoked in Last 30 Days: No Use of substances other than those prescribed or required for medical reasons: No Advance Directives: No Advance Directives Information Provided: No Do you have a plan to hurt others: No Plan Patient : No Physical Exam Vital Signs: Vital Signs: Last Vital Signs Temp 98.2 F 02/29/24 01:02 Pulse 95 02/29/24 01:02 Resp 18 02/29/24 01:02 BP 117/65 02/29/24 01:02 Pulse Ox 100 02/29/24 01:02 O2 Del Method Room Air 02/29/24 01:02 BMI result Body Mass Index 29.2 Appearance: Alert. Oriented X3. No acute distress. ENT: Pharynx arrhythmia tonsils not enlarged no exudates. Oral Mucosa moist Neck: Normal inspection. Neck supple. Upper cervical lymphadenopathy bilateral CVS: Normal heart rate and rhythm. Pulses normal. Respiratory: No respiratory distress. Equal air entry bilateral, no wheezing/rales/rhonchi Abdomen: Soft and nontender. Bowel sounds are present, Skin: Skin warm and dry. Normal skin color. Normal skin turgor. Extremities: No lower extremity edema. No calf tenderness Neuro: Oriented X 3. No motor deficit. Medications Administered Discontinued Medications Generic Name Dose Route Start Last Admin Trade Name Freq PRN Reason Stop Dose Admin Amoxicillin/Clavulanate Potassium 875 mg 02/29/24 00:45 02/29/24 00:51 Amoxicillin/Potassium Clav 875 Mg Tablet PO 02/29/24 00:46 875 mg ONCE ONE Administration Medical Decision Making Differential Diagnosis Differential Diagnoses: The differential diagnosis associated with the presentation includes Strep throat/COVID/infectious mononucleosis Lab Data [facility] Lab Attestation statement: I reviewed the patient's lab results. 02/29/24 00:18 02/29/24 00:18 Labs: Lab Results 02/28/24 02/29/24 Range/Units 22:02 00:18 WBC 7.8 (4.8-10.8) X10*3/uL RBC 4.31 (4.20-5.50) X10*6/uL Hgb 13.7 (12.0-16.0) g/dl Hct 38.7 (37.0-47.0) % MCV 89.8 (80.0-98.0) fL MCH 31.8 (27.0-33.0) pg MCHC 35.4 H (31.0-35.0) g/dl RDW 12.1 (11.0-16.0) % Plt Count 207 (160-400) X10*3/uL MPV 9.7 (9.4-12.3) fL Immature Gran % (Auto) 0.3 (0.0-0.4) % Neut % (Auto) 63.5 (45-73) % Lymph % (Auto) 26.8 (20-40) % [place] % (Auto) 6.5 (2-11) % Eos % (Auto) 2.5 (0-4) % Baso % (Auto) 0.4 (0-2) % Lymph # (Auto) 2.1 (1.2-4.9) X10*3/uL [place] # (Auto) 0.5 (0.1-1.2) X10*3/uL Eos # (Auto) 0.2 (0.0-0.4) X10*3/uL Baso # (Auto) 0.0 (0.0-0.2) X10*3/uL Abs Immat Gran (auto) 0.02 (0.00-0.03) X10*3/uL Absolute Neuts (auto) 4.9 (2.0-8.3) x10*3/uL Absolute Nucleated RBC 0.000 (0.0-0.012) X10*3/uL Nucleated RBC % (auto) 0.0 (0.0-0.2) /100WBC Sodium 140 (135-145) mmol/L Potassium 3.9 (3.3-5.1) mmol/L Chloride 104 (96-108) mmol/L Carbon Dioxide 26 (22-29) mmol/L Anion Gap 14 (12-20) BUN 14 (9-16) mg/dL Creatinine 0.84 (0.5-1.4) mg/dL Estim Creat Clear Calc 88.8 Estimated GFR > 60 Random Glucose 101 (60-115) mg/dL Calcium 9.5 (8.4-10.2) mg/dL Total Bilirubin 0.5 (0.0-1.0) mg/dL AST 16 (5-31) U/L ALT 16 (0-31) U/L Alkaline Phosphatase 82 (39-117) U/L Total Protein 7.5 (6.5-8.0) g/dL Albumin 4.3 (3.5-5.0) g/dL COVID-19 (JOSÉ ANTONIO) Negative (Negative) COVID-19 Clin Com See Note Monoscreen Negative (Negative) Influenza Type A (OLLIE) Negative (Negative) Influenza Type B (OLLIE) Negative (Negative) Influenza A & B Note See Note S. pyogenes GrpA OLLIE Negative (Negative) Discharge Plan Discharge Clinical Impression: Pharyngitis Patient Disposition: Home, Self-Care Instructions: Pharyngitis (ED) Additional Instructions: Saline gargles as advised Antibiotic as prescribed Follow the PCP if not better Prescriptions: New amoxicillin-pot clavulanate 875-125 mg tablet 1 tab PO BID Qty: 20 0RF No Action acetaminophen 500 mg tablet 1,000 mg PO QID PRN (Reason: pain) Qty: 30 0RF lidocaine 5 % adhesive patch,medicated 1 patch topical DAILY PRN (Reason: Back pain) Qty: 15 0RF Rx Instructions: leave on most painful area for up to 12 hrs cyclobenzaprine 5 mg tablet 5 mg PO TID PRN (Reason: muscle spasm) Qty: 14 0RF Rx Instructions: This medication may cause drowsiness so no driving for 6 hours after taking ibuprofen 600 mg tablet 600 mg PO Q6H PRN (Reason: pain) Qty: 20 0RF prednisone 20 mg tablet 60 mg PO DAILY 4 Days Qty: 12 0RF bacitracin 500 unit/gram ointment 1 appl topical Q8H Qty: 14 0RF Interventions: ED Discharge Assessment Last Done: 02/29/24 01:02 Discharge Date/Time: 02/29/24 00:50 Print Language: [place]
[2024-02-29 00:22] LABS: MANUAL DIFF FLAG NO
[2024-02-29 00:23] LABS: Basophils Percent Auto 0.4 % (0-2); Eosinophils Absolute Auto 0.2 X10*3/uL (0.0-0.4); Eosinophils Percent Auto 2.5 % (0-4); Hematocrit 38.7 % (37.0-47.0); Hemoglobin 13.7 g/dl (12.0-16.0); Imm Gran Abs Auto 0.02 X10*3/uL (0.00-0.03); Imm Gran Pct Auto 0.3 % (0.0-0.4); Lymphocytes Absolute Auto 2.1 X10*3/uL (1.2-4.9); Lymphocytes Percent Auto 26.8 % (20-40); Mean Corpuscular HGB Conc 35.4 g/dl (31.0-35.0); Mean Corpuscular Hemoglobin 31.8 pg (27.0-33.0); Mean Corpuscular Volume 89.8 fL (80.0-98.0); Mean Platelet Volume 9.7 fL (9.4-12.3); Monocytes Absolute Auto 0.5 X10*3/uL (0.1-1.2); Monocytes Percent Auto 6.5 % (2-11); Neutrophils Absolute Auto 4.9 x10*3/uL (2.0-8.3); Neutrophils Percent Auto 63.5 % (45-73); Platelet Count 207 X10*3/uL (160-400); Red Blood Count 4.31 X10*6/uL (4.20-5.50); Red Cell Distribution Width 12.1 % (11.0-16.0); White Blood Count 7.8 X10*3/uL (4.8-10.8)
[2024-02-29 00:38] LABS: Monotest Negative (Negative)
[2024-02-29 00:43] LABS: Alanine Aminotransferase 16 U/L (0-31); Albumin Level 4.3 g/dL (3.5-5.0); Anion Gap 14 (12-20); Aspartate Amino Transferase 16 U/L (5-31); Bilirubin Total 0.5 mg/dL (0.0-1.0); Blood Urea Nitrogen 14 mg/dL (9-16); Calcium 9.5 mg/dL (8.4-10.2); Carbon Dioxide 26 mmol/L (22-29); Chloride 104 mmol/L (96-108); Creatinine Clr Calc Pharmacy 88.8; Estimated Glomerular Filt Rate > 60; Glucose Random 101 mg/dL (60-115); Potassium 3.9 mmol/L (3.3-5.1); Sodium 140 mmol/L (135-145); Total Protein 7.5 g/dL (6.5-8.0)
[2024-02-29] MEDS: Amoxicillin/Potassium Clav 875 MG TABLET PO (00:51)
[2024-02-29 00:58] LABS: Alkaline Phosphatase 82 U/L (39-117)
[2024-02-29 01:00] VITALS: BP 117/65; PULSE 95; RESP 18; TEMP 36.8; O2SAT 100
[2024-02-29 01:02] VITALS: BP 117/65; PULSE 95; RESP 18; TEMP 36.8; O2SAT 100
== END 2024-02-29 00:50 | disposition home or self-care (01) ==
PROVIDERS: Emergency Provider Internal Medicine
DX: J02.9 Acute pharyngitis, unspecified (principal); Z03.818 Encounter for observation for suspected exposure to other biological agents ruled out; H92.03 Otalgia, bilateral; Z79.899 Other long term (current) drug therapy
CPT/HCPCS: 36415; 80053; 85025; 86308; 87502; 87635; 87651; 99283; 99284

== ENCOUNTER 2024-10-31 08:55 | Emergency (ER) | payer OTHER, SELFPAY ==
[2024-10-31] VITALS (7 sets, daily range): BP systolic 97–119; BP diastolic 69–77; PULSE 64–82; RESP 18–20; TEMP 36.2–37; O2SAT 97–99; BMI 31.2
[2024-10-31 09:12] LABS: MANUAL DIFF FLAG NO
--- NOTE | 2024-10-31 09:18 | ED.GENADULT ---
HPI - General Adult General Chief complaint: Allergic Reaction Stated complaint: facial burning sensation redness Time Seen by Provider: 10/31/24 09:17 Source: patient Mode of arrival: ambulatory Limitations: no limitations History of Present Illness ED Provider: PRITI CONNER PA-C HPI narrative: 39-year-old female with pmhx of IBS presents to the ED with complaints of facial burning and redness x 1 week. Patient reports redness and tingling sensation on bilateral cheeks and forehead that are not present on waking but gradually progresses approximately 10 minutes after waking and becomes worse in the afternoon. Patient reports that the burning sensation has started to affect her left eye and reports associated blurry vision. Patient reports starting a new shampoo but stopped using it 10 days ago. Patient has trialed Zyrtec with no relief. Patient was seen at an urgent care on 10/27/24 and was prescribed prednisone for 5 days which she has been taking as prescribed without improvement. Patient was seen by her PCP yesterday and was prescribed hydrocortisone cream and has since stopped her typical skin care routine. No new skin care products. She reports a history of seasonal allergies however has not had symptoms for 18 years until this year. 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 Denies fever, chills, chest pain, shortness of breath, N/V/D. Denies recent antibiotics. Denies recent medication changes. Denies tick or insect bites. Related Data Previous Rx's ?Medication ?Instructions ?Recorded acetaminophen 500 mg tablet 1,000 mg (2 x 500 mg) PO QID PRN 07/28/21 pain #30 tabs cyclobenzaprine 5 mg tablet 5 mg PO TID PRN muscle spasm #14 07/28/21 tabs ibuprofen 600 mg tablet 600 mg PO Q6H PRN pain #20 tabs 07/28/21 lidocaine 5 % topical patch 1 patch topical DAILY PRN Back 07/28/21 pain #15 ea prednisone 20 mg tablet 60 mg (3 x 20 mg) PO DAILY 4 days 07/28/21 #12 tabs bacitracin 500 unit/gram topical 1 appl topical Q8H #14 grams 10/20/22 ointment amoxicillin 875 mg-potassium 1 tab PO BID #20 tabs 02/29/24 clavulanate 125 mg tablet famotidine 20 mg tablet (Pepcid) 20 mg PO DAILY 2 weeks #14 tabs 10/31/24 Allergies Allergy/AdvReac Type Severity Reaction Status Date / Time No Known Allergies Allergy Verified 10/31/24 09:00 [No Known Allergies*] Review of Systems Review of Systems: Yes all other systems are reviewed and are negative [facility] Past Medical History Attestation statement: The following information was validated with the patient. Source: old records reviewed and nursing notes reviewed Medical History No known health problems Surgical History History of ankle surgery Tubal ligation status Social History Social History Alcohol intake: never Smoked in Last 30 Days: No Use of substances other than those prescribed or required for medical reasons: No Advance Directives: No Advance Directives Information Provided: No Do you have a plan to hurt others: No Plan Patient : No Physical Exam ED Vital Signs: Vital Signs - 24 hr 10/31/24 08:58 10/31/24 11:02 10/31/24 11:03 Temperature 98.6 F 97.2 F Pulse Rate 82 64 64 Respiratory Rate 20 18 Blood Pressure 118/77 108/69 108/69 Pulse Oximetry 97 99 Oxygen Delivery Method Room Air Room Air 10/31/24 11:04 10/31/24 11:05 10/31/24 12:14 Temperature 98.5 F Pulse Rate 71 73 66 Respiratory Rate 18 Blood Pressure 111/71 97/72 119/75 Pulse Oximetry 97 Oxygen Delivery Method Room Air 10/31/24 12:50 Temperature 98.5 F Pulse Rate 66 Respiratory Rate 18 Blood Pressure 119/75 Pulse Oximetry 97 Oxygen Delivery Method Room Air BMI result Body Mass Index 31.2 Vital signs stable. Afebrile. Normotensive, not hypoxic General: Well appearing, in no acute distress. Skin: Warm, dry, intact. +blanching erythema to bilateral cheeks and forehead. no warmth. appears to spare nasolabial folds. no sloughing. no target lesions. no pustuals. non dermatomal pattern. spares mucous membranes, webbed spaces, palms/ soles. See image: Head: Normocephalic, atraumatic. EENT: Hearing is intact b/l. Conjunctiva clear. Sclera is anicteric. PERRLA. EOM intact. Moist mucous membranes.?posterior oropharynx wnl. Neck: Supple without LAD. Cardiac: Chest wall symmetric. RRR. Lungs: Normal respiratory effort without accessory muscle use. CTA bilaterally. Ext: Upper and lower extremities atraumatic, without tenderness, deformity, swelling or erythema. Neuro: AOx3. Normal speech. Course Course Course Narrative: CBC without leukocytosis. left shift to 80%. Inflammatory markers WNL. Chemistry without acute electrolyte abnormality requiring intervention. No JU. Liver function WNL. ortho vitals negative. Eye exam performed by PA student Ankit auguste/ patient's consent. I was at bedside to observe/ assist. No periorbital swelling. No enophthalmous or exopthalmous. EOMs intact without pain or entrapment. PERRLA. Positive photophobia. No obvious foreign body or abrasion. No conjunctival injection or chemosis. No hazy cornea. Visual acuity 20/20 b/l. IOP OD 23, IOP OS 24. On tetracaine exam, no reuptake to suggest abrasion or fb. No ulceration. No dendritic lesions. > on re-evaluation, there is significant improvement in redness after receiving Solu-Medrol, Pepcid and Benadryl. Areas still slight erythema noted to bilateral cheeks however forehead erythema completely resolved. Unclear etiology for patient's symptoms. I had some suspicion for erysipelas however patient is completely symptomatic on waking in the morning and this is not typical for bacterial infection. ?rheumatologic etiology verses dermatologic. She does have an appointment with boom operator in May. I will give her a referral to a search engine marketing manager in the time being for possible autoimmune workup. she is agreeable with this. feels well and stable for discharge. Patient has remained stable throughout ED visit today. Discussed worrisome signs and symptoms and when to return to the ED. All questions answered at this time. Patient is agreeable with disposition and stable for discharge. Medications Administered Discontinued Medications Generic Name Dose Route Start Last Admin Trade Name Freq PRN Reason Stop Dose Admin Diphenhydramine HCl 25 mg 10/31/24 09:34 10/31/24 09:56 Diphenhydramine Hcl 50 Mg/Ml Vial IVPUSH 10/31/24 09:35 25 mg ONCE ONE Administration Famotidine 20 mg 10/31/24 09:34 10/31/24 09:57 Famotidine/Pf 20 Mg/2 Ml Vial IVPUSH 10/31/24 09:35 20 mg ONCE ONE Administration Fluorescein Sodium 1 strip 10/31/24 11:01 10/31/24 11:07 Fluorescein Sodium Strip EYE-LEFT 10/31/24 11:02 1 strip ONCE ONE Administration Methylprednisolone Sodium Succinate 125 mg 10/31/24 09:34 10/31/24 10:03 Methylprednisolone Sod Succ 125 Mg/2 Ml Vial IVPUSH 10/31/24 09:35 Not Given ONCE ONE Methylprednisolone Sodium Succinate 125 mg 10/31/24 10:00 10/31/24 10:02 Methylprednisolone Sod Succ 125 Mg Vial IVPUSH 10/31/24 10:01 125 mg ONCE ONE Administration Tetracaine HCl 1 drop 10/31/24 11:01 10/31/24 11:07 Tetracaine Hcl/Pf 0.5% Oph Salome 4 Ml Drops EYE-LEFT 10/31/24 11:02 1 drop ONCE ONE Administration Medical Decision Making Medical Decision Making MDM Narrative: 39-year-old female with pmhx of IBS presents to the ED with complaints of facial burning and redness x 1 week. Afebrile, vital signs stable. Well-appearing, in no acute distress. On exam there is blanching erythema to bilateral cheeks and forehead. no warmth. appears to spare nasolabial folds. no sloughing. no target lesions. no pustuals. non dermatomal pattern. spares mucous membranes, webbed spaces, palms/ soles. see photo above. Differential diagnosis includes contact/atopic/eczematous dermatitis, psoriasis, erysipelas, cellulitis, lupus malar rash. History and exam findings not consistent with lyme/tick bourne illness, herpes zoster/simplex, scabies, HFM,? dangerous etiologies of rash such as SJS/TEN, or secondary dangerous causes such as petechial rashes from thrombocytopenia or rickettsial infections.? Plan for labs, ESR, CRP, HCG, solumedrol, pepcid, benadryl + re-evaluation. Differential Diagnosis Differential Diagnoses: The differential diagnosis associated with the presentation includes As above Admission/Observation Not indicated Lab Data MDM Lab Attestation statement: I reviewed the patient's lab results. As above 10/31/24 09:08 10/31/24 09:08 Labs: Lab Results 10/31/24 Range/Units 09:08 WBC 9.2 (4.8-10.8) X10*3/uL RBC 4.40 (4.20-5.50) X10*6/uL Hgb 14.1 (12.0-16.0) g/dl Hct 39.5 (37.0-47.0) % MCV 89.8 (80.0-98.0) fL MCH 32.0 (27.0-33.0) pg MCHC 35.7 H (31.0-35.0) g/dl RDW 12.5 (11.0-16.0) % Plt Count 254 (160-400) X10*3/uL MPV 9.7 (9.4-12.3) fL Immature Gran % (Auto) 0.5 H (0.0-0.4) % Neut % (Auto) 80.0 H (45-73) % Lymph % (Auto) 13.3 L (20-40) % [place] % (Auto) 6.0 (2-11) % Eos % (Auto) 0.0 (0-4) % Baso % (Auto) 0.2 (0-2) % Lymph # (Auto) 1.2 (1.2-4.9) X10*3/uL [place] # (Auto) 0.6 (0.1-1.2) X10*3/uL Eos # (Auto) 0.0 (0.0-0.4) X10*3/uL Baso # (Auto) 0.0 (0.0-0.2) X10*3/uL Abs Immat Gran (auto) 0.05 H (0.00-0.03) X10*3/uL Absolute Neuts (auto) 7.3 (2.0-8.3) x10*3/uL Absolute Nucleated RBC 0.000 (0.0-0.012) X10*3/uL Nucleated RBC % (auto) 0.0 (0.0-0.2) /100WBC ESR 8 (0-20) MM/HR Sodium 141 (135-145) mmol/L Potassium 4.1 (3.3-5.1) mmol/L Chloride 107 (96-108) mmol/L Carbon Dioxide 24 (22-29) mmol/L Anion Gap 14 (12-20) BUN 10 (9-16) mg/dL Creatinine 0.81 (0.5-1.4) mg/dL Estim Creat Clear Calc 95.2 Estimated GFR > 60 Random Glucose 109 (60-115) mg/dL Calcium 9.3 (8.4-10.2) mg/dL Magnesium 2.0 (1.6-2.6) mg/dL Total Bilirubin 0.4 (0.0-1.0) mg/dL AST 16 (5-31) U/L ALT 17 (0-31) U/L Alkaline Phosphatase 86 (39-117) U/L C-Reactive Protein 0.18 (< or = 0.50) mg/dL Total Protein 7.2 (6.5-8.0) g/dL Albumin 4.3 (3.5-5.0) g/dL Beta HCG, Quant < 2 mIU/mL External Record Review External record reviewed: Inpatient record Social Determinants Patient?s care significantly limited by Social Determinants of Health including: Other Social Determinant of Health Critical Care Time Critical Care Time Critical Care Time: No Discharge Plan Discharge Clinical Impression: Facial erythema Patient Disposition: Home, Self-Care Additional Instructions: You were evaluated in the ED today for facial redness. Your blood work is reassuring. You were treated with IV medications with some improvement. At this time, there is no clear etiology for your symptoms. I am referring you to a boom operator and a search engine marketing manager for suspected skin condition vs autoimmune condition. Call them to establish care. They will not call you. In the meantime, please do not apply any skin care to your face. You may continue hydrocortisone for the next week. I am sending pepcid to your pharmacy for you to trial. Return to the Emergency Department if you experience worsening or spreading rash, worsening or uncontrolled pain, fevers 100.4?F or greater, recurrent vomiting, shortness of breath, discharge from your rash, or any other concerning symptoms. In the case of an emergency call 911. Prescriptions: New famotidine [Pepcid] 20 mg tablet 20 mg PO DAILY 14 Days Qty: 14 0RF No Action acetaminophen 500 mg tablet 1,000 mg PO QID PRN (Reason: pain) Qty: 30 0RF lidocaine 5 % adhesive patch,medicated 1 patch topical DAILY PRN (Reason: Back pain) Qty: 15 0RF Rx Instructions: leave on most painful area for up to 12 hrs cyclobenzaprine 5 mg tablet 5 mg PO TID PRN (Reason: muscle spasm) Qty: 14 0RF Rx Instructions: This medication may cause drowsiness so no driving for 6 hours after taking ibuprofen 600 mg tablet 600 mg PO Q6H PRN (Reason: pain) Qty: 20 0RF prednisone 20 mg tablet 60 mg PO DAILY 4 Days Qty: 12 0RF bacitracin 500 unit/gram ointment 1 appl topical Q8H Qty: 14 0RF amoxicillin-pot clavulanate 875-125 mg tablet 1 tab PO BID Qty: 20 0RF Referrals: [facility] [Provider Group] Jacqueline Bear PA-C [Physician Shop Coordinator] - Physician,Unknown J [Primary Care Provider] - Stand Alone Forms: Work/School Release Interventions: ED Discharge Assessment Last Done: 10/31/24 12:50 Discharge Date/Time: 10/31/24 12:58 Print Language: Greek
[2024-10-31 09:22] LABS: Basophils Percent Auto 0.2 % (0-2); Hematocrit 39.5 % (37.0-47.0); Hemoglobin 14.1 g/dl (12.0-16.0); Imm Gran Abs Auto 0.05 X10*3/uL (0.00-0.03); Imm Gran Pct Auto 0.5 % (0.0-0.4); Lymphocytes Absolute Auto 1.2 X10*3/uL (1.2-4.9); Lymphocytes Percent Auto 13.3 % (20-40); Mean Corpuscular HGB Conc 35.7 g/dl (31.0-35.0); Mean Corpuscular Volume 89.8 fL (80.0-98.0); Mean Platelet Volume 9.7 fL (9.4-12.3); Monocytes Absolute Auto 0.6 X10*3/uL (0.1-1.2); Neutrophils Absolute Auto 7.3 x10*3/uL (2.0-8.3); Platelet Count 254 X10*3/uL (160-400); Red Cell Distribution Width 12.5 % (11.0-16.0); White Blood Count 9.2 X10*3/uL (4.8-10.8)
[2024-10-31 09:27] LABS: Alanine Aminotransferase 17 U/L (0-31); Albumin Level 4.3 g/dL (3.5-5.0); Alkaline Phosphatase 86 U/L (39-117); Anion Gap 14 (12-20); Aspartate Amino Transferase 16 U/L (5-31); Bilirubin Total 0.4 mg/dL (0.0-1.0); Blood Urea Nitrogen 10 mg/dL (9-16); Calcium 9.3 mg/dL (8.4-10.2); Carbon Dioxide 24 mmol/L (22-29); Chloride 107 mmol/L (96-108); Creatinine Clr Calc Pharmacy 95.2; Estimated Glomerular Filt Rate > 60; Glucose Random 109 mg/dL (60-115); Potassium 4.1 mmol/L (3.3-5.1); Sodium 141 mmol/L (135-145); Total Protein 7.2 g/dL (6.5-8.0)
--- OUTSIDE RECORDS SUMMARY | 2024-10-31 09:37 | XMS_ITS | Data Portability ---
Author Organization [facility], [address] Address [address] [place] [address] Assessment No assessment recorded. Plan of Treatment Reminders Order Date Submit Date Provider Last Modified By Organization Details Last Modified Time Details Appointments None recorded. Lab rapid flu (A+B) 2021 [place] [id number], [address] [place] [address], [phone], 13:46:08 rapid SARS CoV 2 Ag, QL IA, respiratory specimen 2021 [place] [address] _[facility], [address] [place] [address], [phone], 13:46:08 Referral None recorded. Procedures None recorded. Surgeries None recorded. Imaging None recorded. Medication Orders oseltamivir 75 mg capsule 2021 [facility]acy #[id number], [address], [place], [address], 13:46:10 Patient TargetsNo targets recorded. Patient Instructions Encounter Date Encounter Id Patient Instructions Last Modified By Organization Details Last Modified Time 05/31/2022 [id number] influenza (flu): care instructions [email or web address] Not available 05/31/2022 13:46:08 cough: care instructions Not available 05/31/2022 13:46:08 Based on your Presentation and Exam you are being diagnosed with Influenza. Your rapid Flu test was Positive Influenza is caused by a virus that is highly contagious. If you have any family member that have been exposed they typically will start to show symptoms in 48-72 hours. I am going to prescribe you Tamiflu - which has to be started within 48 hours to be effective. If it is started after that time it typically can cause GI symptoms. If family member show symptoms, remember that treatment has to be started within 48 hours. You are considered contagious for 5 Days after the start of the fever. You should isolate and not go to work, sports, events during this quarantine period. The following are my recommendations to help with your symptoms while your body fights this infection: 1. Take Ibuprofen or Tylenol if you do not have any allergies to these medications. If you take a blood thinner you should not take NSAIDS like Ibuprofen. These medication will help with the inflammation in your respiratory tract which should help the cough. 2. Do not take any decongestants at this time because this will dry out that tract too much. If you have a lot of nasal congestion you can try nasal decongestants, but I would not take them more than 5 days. 3. Use a humidifier or add a cup of water by your bed. Sometimes if our sleeping environment is too dry this can lead to cough 4. Salt Water Gargles 5. Saline nasal spray is helpful. 6. Would recommend taking a antihistamine to help with the congestion. 7. Clean Surfaces regularly and try to stay isolated from family members. I would be seen again if you develop any of the following. 1. Cough develops last longer than 3 weeks. 2. Develop shortness of breath or wheezing. 3. Severe Headache with vision changes 4. Stiff Neck 5. Fever does not reduce a few points with Ibuprofen or Tylenol. I would go immediately to the Emergency Room if you develop: 1. Chest Pain 2. Severe Shortness of breath 3. Coughing up Blood. Not available 05/31/2022 13:39:09 Reason for Referral None Reported. Results Created Date Observation Date Name Description Value Unit Range Abnormal Flag Note LastModifiedBy Organization Detail LastModifiedTime 05/31/20 22 05/31/2022 rapid SARS CoV 2 Ag, QL IA, respi rator y speci men Unknown Analyte Normal =Negat flor Not Available [address] [place] [address], [place], [address], 05/31/2022 13:17:56 05/31/20 22 05/31/2022 rapid SARS CoV 2 Ag, QL IA, respi rator y speci men Unknown Analyte negati ve Not Available [facility] [address] [place], [address], 05/31/2022 13:17:56 05/31/20 22 05/31/2022 rapid flu (A+B) Unknown Analyte Normal = Negati ve Not Available [address] [place] [address], [address], 05/31/2022 13:17:55 05/31/20 22 05/31/2022 rapid flu (A+B) Unknown Analyte positi ve Not Available [address] [place] [address], [phone], 05/31/2022 13:17:55 05/31/20 22 05/31/2022 rapid flu (A+B) Unknown Analyte Normal = Negati ve Not Available [address] [place] [address], [phone], 05/31/2022 13:17:55 Result Notes None recorded. Problems No Known Problems Procedures Surgical History Date Name Laterality Status Provider Name and Address Organization Details Recorded Time ligation of fallopian tube completed BONILLAHARRIETT MONDRAGON HUSAIN PA - [facility] 05/31/2022 13:16:47 surgical manipulation of ankle joint completed BONILLA MONDRAGON HUSAIN PA - [facility] 05/31/2022 13:17:11 cholecystectomy completed BONILLA GIANCARLO HUSAIN PA - [facility] 05/31/2022 13:17:27 Imaging Results None recorded. Procedure Notes None recorded. Medical Equipment None Reported. Allergies No known drug allergies Medications Name Sig Start Date Stop Date Status Note LastModified by Organization Details LastModified Time acetaminoph en 325 mg tablet TAKE 3 TABLETS BY MOUTH EVERY 6 HOURS 05/31 completed Not Available Not Available Not Available meloxicam 15 mg tablet TAKE 1 TABLET BY MOUTH EVERY DAY 05/31 completed Not Available Not Available Not Available sucralfate 1 gram tablet TAKE 1 TABLET BY MOUTH THREE TIMES A DAY BEFORE MEALS AND AT BEDTIME 05/31 completed Not Available Not Available Not Available prednisone 20 mg tablet TAKE 3 TABLETS BY MOUTH EVERY DAY FOR 4 DAYS 05/31 completed Not Available Not Available Not Available acetaminoph en 500 mg tablet TAKE 2 TABLETS BY MOUTH 4 TIMES A DAY NEEDED FOR PAIN 05/31 completed Not Available Not Available Not Available baclofen 10 mg tablet TAKE 1 TABLET BY MOUTH 3 TIMES A DAY 05/31 completed Not Available Not Available Not Available oseltamivir 75 mg capsule Take 1 capsule twice a day by oral route for 5 days. 2021 active Not Available Not Available Not Avai lable lidocaine 5 % topical patch PLACE 1 PATCH TOPICAL DAILY NEEDED FOR BACK PAIN LEAVE ON MOST PAINFUL AREA FOR UP TO 12 HRS 05/31 completed Not Available Not Available Not Available docusate sodium 100 mg capsule TAKE 1 CAPSULE BY MOUTH EVERY DAY NEEDED FOR CONSTIPAT ION 05/31 completed Not Available Not Available Not Available ibuprofen 600 mg tablet TAKE 1 TABLET BY MOUTH 3 TIMES A DAY 05/31 completed Not Available Not Available Not Available methylpredn isolone 4 mg tablets in a dose pack TAKE 6 TABLETS ON DAY 1 DIRECTED ON PACKAGE AND DECREASE BY 1 TAB EACH DAY FOR A TOTAL OF 6 DAYS 05/31 completed Not Available Not Available Not Available ondansetron 4 mg disintegrat ing tablet TAKE 1 TABLET BY MOUTH EVERY 6 HOURS NEEDED FOR NAUSEA AND VOMITING 05/31 completed Not Available Not Available Not Available nabumetone 500 mg tablet TAKE 1 TABLET BY MOUTH TWICE A DAY - STOP OTHER NSAIDS 05/31 completed Not Available Not Available Not Available oxycodone 5 mg tablet TAKE 1 TABLET BY MOUTH EVERY 4 HOURS NEEDED FOR SEVERE PAIN 05/31 completed Not Available Not Available Not Available cyclobenzap rine 5 mg tablet PLEASE SEE ATTACHED FOR DETAILED DIRECTION S 05/31 completed Not Available Not Available Not Available Allergy Relief D12 5 mg-120 mg tablet,exte nded release TAKE 1 TABLET BY MOUTH TWICE A DAY FOR 10 DAYS 05/31 completed Not Available Not Available Not Available omeprazole 20 mg tablet,mary grace yed release TAKE 1 TABLET BY MOUTH EVERY DAY 05/31 completed Not Available Not Available Not Available diclofenac 1 % topical gel APPLY TO AFFECTED AREA 4 TIMES A DAY 05/31 completed Not Available Not Available Not Available Vitals Date Recorded Body height Oxygen saturation Oxygen saturation in Arterial blood by Pulse oximetry Heart rate Pain severity - 0-10 verbal numeric rating [Score] - Reported Respiratory rate Body temperature Systolic blood pressure Diastolic blood pressure Provider Name and Address Organization Details Last Updated DateTime 2 160.02 cm 99 % 99 % 79 /min 0 16 /min 98.2 [degF] 112 mm[Hg] 75 mm[Hg] BONILLA HUSAIN PA - [facility] 13:18:19 Social History Question Answer Notes LastModified by Organizat ion Details LastModified Time Tobacco Smoking Status Never Smoker BONILLA garcia PA - [facility] 05/31/2022 13:19:57 What Is Your Level Of Alcohol Consumption? None Information not available 05/31/2022 Are You Currently Employed? Yes [email or web address] Information not available 05/31/2022 What Is The Highest Grade Or Level Of School You Have Completed Or The Highest Degree You Have Received? [id number] Information not available 05/31/2022 What Is Your Water Source? City Information not available 05/31/2022 What Is Your Heat Source? Electric Information not available 05/31/2022 Have You Had Direct Contact, Or Contact During Intimacy, With Monkeypox Rash, Scabs, Or Body Fluids From A Person With Monkeypox? No Information not available 05/31/2022 What Is Your Relationship Status? Unknown Information not available 05/31/2022 Do You Use Any Illicit Or Recreational Drugs? No [email or web address] Information not available 05/31/2022 Have You Recently Traveled Abroad? No [email or web address] Information no t available 05/31/2022 Are You Currently In School? No [email or web address] Information not available 05/31/2022 Do You Or Have You Ever Used Any Other Forms Of Tobacco Or Nicotine? No [email or web address] Information not available 05/31/2022 Sex: Unknown Functional Status None recorded. Mental Status None recorded. Family History Nothing Reported. Medical History No medical history recorded. Gynecological HistoryNo gynecological history recorded. Obstetrics History GPAL:G 0 P 0 0 0 0 Past Encounters Encounter ID Performer Location Encounter Start Date Encounter Closed Date Diagnosis/Indication Diagnosis SNOMED-CT Code Diagnosis ICD10 Code Diagnosis Note [id number] [facility] [address] [facility] [place] [address] 10/03/2020 14:56:46 10/03/2020 17:14:47 [id number] [address] [address] [place] [address] 08/30/2021 10:12:59 08/30/2021 10:46:18 [id number] [place] [address] 05/25/2021 14:46:11 05/25/2021 19:05:45 [id number] [address] [place] [address] 09/08/2019 16:06:27 09/08/2019 16:24:17 [id number] MAIK PIPER [address] [place] [address] 05/31/2022 09:59:42 05/31/2022 13:47:10 Fever 962072114 R50.9 Influenza caused by Influenza A virus 040682805 J09.X2 Health Concerns Section Related Observation LastModified by Organization Detai ls LastModified Time None Recorded Concern Status LastModified by Organization Details LastModified Time None Recorded Advance Directives Directive None Recorded Payers Insurance Date Sequence Insurance Name Policy Number Policy Nunez Covered Member ID Nunez Member ID Guarantor Name 05/31/2022 1 [facility] (MEDICAID HMO) [id number] Elsa Merino [id number] Elsa Merino Notes Date Note Type Note Provider Name and Address Organization Details Recorded Time 2 text/html CoughReported bypatient.source of patient informationInformation obtained from patient; Patient arrived at Urgent Care ambulatory Quality:intermittent Severity:worsening; moderate Duration:1 days Timing:sudden Context:non-smoker Associated Symptoms:no heartburn; no nausea; no vomiting; no post nasal drip;fever;chillsNotes:Sudd en onset - numerous people at work are positive for Flu. Feels like she is coughing more and getting tightness in her chest. Taking Dayquil and Nyquil. MAIK PIPER [address] [place], [address], PA - [facility] 05/31/2022 13:49:06 OBGyn Episode No OBEpisode recorded.
--- OUTSIDE RECORDS SUMMARY | 2024-10-31 09:37 | XMS_ITS ---
Author Name [facility] Organization Unknown Care Team Organization Name Specialty Phone Email Start Date End Da te [facility] ([facility]
--- OUTSIDE RECORDS SUMMARY | 2024-10-31 09:37 | XMS_ITS | Clinical Summary ---
Author Organization [facility] ity Address [address] [place] [address] Care Team Providers Care Printed Circuit Board Designer Name Role Phone Duglas Alicia MD Primary Care Provider [phone] Social History Tobacco Use Types Packs/Day Years Used Date Smoking Tobacco: Never Assessed Comments Unknown Sex and Gender Information Value Date Recorded Sex Assigned at Not on file Legal Sex Female 5:38 AM EST Gender Identity Not on file Sexual Orientation Not on file Plan of Treatment Health Maintenance Due Date Last Done Comments DTaP,Tdap,and Td Vaccines (1 - Tdap) 2006 Hepatitis B Vaccines (1 of 3 - 19+ 3-dose series) 2006 Cervical Cancer Screening: P ap Smear 01/27/2008 Depression Screening 05/27/2022 HIV Screening 05/27/2022 Hepatitis C Screening 05/27/2022 Social Influencers of Health Screening 05/27/2022 COVID-19 Vaccine ( - 2023-2 5 season) 2024 Influenza Vaccine (Season Ended) 2025 HIB Vaccines Aged Out No longer eligi ble based on patient's age to complete this topic HPV Vaccines Aged Out No longer eligi ble based on patient's age to complete this topic Hepatitis A Vaccines Aged Out No long er eligible based on patient's age to complete this topic IPV Vaccines Aged Out No longer eligi ble based on patient's age to complete this topic MMR Vaccines Aged Out No longer eligi ble based on patient's age to complete this topic Meningococcal ACWY Vaccine Aged Out N o longer eligible based on patient's age to complete this topic Meningococcal B Vaccine Aged Out No l onger eligible based on patient's age to complete this topic Pneumococcal Vaccine: Pediat rics (0 to 5 Years) and At-Risk Patients (6 to 64 Years) Aged Out No longer eligible b ased on patient's age to complete this topic RSV Immunization Patients Un alina 20 months Aged Out No longer eligible b ased on patient's age to complete this topic Varicella Vaccines Aged Out No longer eligible based on patient's age to complete this topic Care Teams Printed Circuit Board Designer Relationship Specialty Start Date End Date Duglas Alicia MD [address] [place] [id number] PCP - General 01/30/10
[2024-10-31] MEDS: diphenhydrAMINE HCL 50 MG/ML VIAL 25 MG IVPUSH (09:56)
[2024-10-31] MEDS: Famotidine/PF 20 MG/2 ML VIAL IVPUSH (09:57)
[2024-10-31 09:58] LABS: C Reactive Protein 0.18 mg/dL (< or = 0.50)
[2024-10-31 10:49] LABS: Erythrocyte Sedimentation Rate 8 MM/HR (0-20)
[2024-10-31] MEDS: Fluorescein Sodium STRIP 1 STRIP EYE-LEFT (11:07)
[2024-10-31] MEDS: Tetracaine HCl/PF 0.5% Oph Sol 4 ML DROPS 1 DROP EYE-LEFT (11:07)
[2024-10-31 18:30] LABS: HCG Quantitative < 2 mIU/mL
== END 2024-10-31 12:58 | disposition home or self-care (01) ==
PROVIDERS: Physician Assistant Medical; Emergency Provider Emergency Medicine
DX: L53.9 Erythematous condition, unspecified (principal); R21 Rash and other nonspecific skin eruption; H53.8 Other visual disturbances; Z79.899 Other long term (current) drug therapy
CPT/HCPCS: 36415; 80053; 83735; 84702; 85025; 85652; 86140; 96374; 96375; 99284; J1200; J1308; J2919

== ENCOUNTER 2025-02-01 18:11 | Emergency (ER) | payer OTHER, SELFPAY | END 2025-02-01 19:35 | disposition left against medical advice (07) | LOC: HO.ED 19:36 | PROVIDERS: Emergency Provider Emergency Medicine | DX: R10.9 Unspecified abdominal pain (principal); R19.7 Diarrhea, unspecified; R53.83 Other fatigue; Z53.21 Procedure and treatment not carried out due to patient leaving prior to being seen by health care provider ==

== ENCOUNTER 2025-04-01 10:56 | Outpatient (AMB) | payer OTHER, SELFPAY ==
[2025-04-01 10:59] VITALS: BP 102/66; PULSE 77; O2SAT 97; BMI 31.0
--- NOTE | 2025-04-01 10:59 | MHC.OFFVIS ---
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 She was previously seen at [facility]. Year of Diagnosis: 2021 Initial Presentation: Patient was diagnosed with Zechariah's thyroiditis in 2021, with elevated TSH and symptoms of swelling. Treatment History: Patient was on levothyroxine for three months initially, after which the medication was stopped as labs normalized. Current Symptoms: - General: Fluctuating between feeling hot and cold, night sweats, and cold extremities. - Cardiovascular: Occasional heart racing without specific triggers. - Skin/Hair: Reports of hair falling more than before and dry skin associated with allergy-induced hives. - Gastrointestinal: History of IBS, making bowel symptom assessment challenging. - Course/Severity: Patient has lost approximately 10 pounds recently, which they attribute to lifestyle changes and gallbladder removal. - Precipitating Factors: None identified. Patient denies history of neck/head/chest radiation, she is taking a supplement that contains biotin. Physical Exam: - General: Patient appears well, no anxiety or excessive sweating observed. - Neck: Thyroid palpably enlarged, no nodules felt. Mild tenderness noted upon palpation. - CV: Regular rate and rhythm, no murmur, no edema. - Respiratory: Lungs clear to auscultation bilaterally. - Skin/Hair: Reports of hair thinning, associated with hives and dry skin. - Neuro: No tremors, reflexes not assessed. Labs: LABORATORY 02/01/2025 Calcium 9.2 Protein, Total 7.5 Albumin 4.5 AG Ratio 1.5 Alkaline Phosphatase 96 AST (SGOT) 15 ALT (SGPT) 18 Bilirubin, Total 0.4 Lactate 1.3 LABORATORY 11/18/2024 TSH 2.720 LABORATORY 08/05/2023 TSH 3.21 LABORATORY 05/10/2022 TSH 3.10, 3.10 Free T4 0.93 Imaging: Thyroid ultrasound record from 2021 reviewed on patient's phone. Report shows some stable report mildly heterogeneous right thyroid lobe and left thyroid lobe we will increase vascularity. No thyroid nodules. No is just dictated saw Matteo'morgan Morris's [facility] Medical History (Updated 04/01/25 @ 11:18 by Colin Bella MD) Hx of Zechariah thyroiditis No known health problems Surgical History Hx of cholecystectomy History of ankle surgery Tubal ligation status Family History Father No problems noted. Mother Unknown family medical history Social History Alcohol intake: never Patient Tobacco Use Status: Never used Tobacco Physical Exam Vital Signs: Last Vital Signs Pulse 77 04/01/25 10:59 BP 102/66 04/01/25 10:59 Pulse Ox 97 04/01/25 10:59 Oxygen Delivery Method Room Air 04/01/25 10:59 BMI result Body Mass Index 31.0 Assessment & Plan Assessment & Plan (1) Hx of Zechariah thyroiditis: Code(s): Z86.39 - Personal history of other endocrine, nutritional and metabolic disease Category: Medical Plan History of Zechariah's thyroiditis,. She was initially on levothyroxine for 3 months but she was asked to stop it after her labs normalized. Currently she is not taking any medication and clinically she has no evidence symptoms of hypothyroidism. Her labs showed normal TSH, but she is taking Biotin we could interfere with the assay. Plan - Discontinue multivitamin for 5 days and retest TSH to confirm accurate levels. - Order thyroid ultrasound to assess for nodules given family history. - Continue monitoring TSH every 6?12 months if normal, more frequently if symptoms change. - Discussed Zechariah's pathophysiology with the patient. - Consider starting levothyroxine if future labs indicate hypothyroidism. Orders: Orders TSH reflex Free T4 Today Z86.39 - Personal history of other endocrine, nutritional and metabolic disease Thyroid Peroxidase Antibodies Today Z86.39 - Personal history of other endocrine, nutritional and metabolic disease Medications: Discontinued amoxicillin-pot clavulanate 875-125 mg Discontinued Reason: Patient Completed Course 1 tab PO BID 20 tabs 0RF Coding Level of Care Code New Pt Level 3 (22313) Diagnoses Hx of Zechariah thyroiditis Z86.39 Time Spent (min) 35 Comment Time spent on review of previous records, history, exam/plan and patient education.
== END 2025-04-01 11:35 | disposition home or self-care (01) ==
LOC: HO.ENCR 10:56
PROVIDERS: Visit Provider Student in an Organized Health Care Education/Training Program
DX: Z86.39 Personal history of other endocrine, nutritional and metabolic disease (principal)
CPT/HCPCS: 99203

== ENCOUNTER → 2025-04-01 10:56 | Outpatient (BNVA) | payer OTHER, SELFPAY | PROVIDERS: Visit Provider Student in an Organized Health Care Education/Training Program | DX: Z71.2 Person consulting for explanation of examination or test findings (principal); Z86.39 Personal history of other endocrine, nutritional and metabolic disease | CPT/HCPCS: 99202 ==